=== PATIENT | female | born 1975 | race Caucasian/White ===

== ENCOUNTER 2018-10-27 13:16 | Inpatient (IN) ==
--- NOTE | 2018-10-27 13:48 | Emergency Department Note ---
Disposition Clinical Impression: Dysfunctional uterine bleeding Disposition: Still a Patient Referrals: David Gomez MD [Primary Care Provider] - General Adult HPI - General Chief complaint: ED Vaginal Bleeding Stated complaint: vaginal bleeding Time Seen by Provider: 10/27/18 13:26 Source: patient, family Mode of arrival: ambulatory Limitations: no limitations Nursing Notes Reviewed: Yes Vital Signs Reviewed: Yes - History of Present Illness HPI Narrative: Attestation note: Patient was seen with the emergency medicine resident/nurse practitioner/physician ex assistant/program director/transitional resident/medical student: Dr. Trino Prabhakar I have personally performed a face to face evaluation on this patient. I have reviewed and agree with history and physical examination patient management and disposition. Briefly the salient points of the case are as follows: 42-year-old female seen earlier in the week for dysfunctional uterine bleeding received a transfusion admitted offered a hysterectomy versus iron pills she opted for the latter. Patient says that she has been feeling more lightheaded feeling pallor feeling more fatigued. Patient does appear pale. Patient will be getting screening labs urine . Disposition pending depending on the results of hematocrit. Pain Scale: 0 - Related Data Home Medications Medication Instructions Recorded Confirmed Albuterol Sulfate [Ventolin Hfa] 2 puff IH Q4H PRN 08/19/15 08/19/15 Lisinopril/Hydrochlorothiazide 1 each PO DAILY 08/19/15 08/19/15 [Zestoretic 10-12.5 mg Tablet] Multivitamin [Multi-Day Vitamins] 1 each PO DAILY 08/19/15 08/19/15 Previous Rx's Medication Instructions Recorded OxyCODONE/APAP 10/325 [Percocet 1 each PO Q6HR PRN #36 tablet 08/19/15 10/325 MG] Docusate [Colace] 100 mg PO BID PRN #60 capsule 10/23/18 Ferrous Sulfate 325 mg PO TID #90 tablet. 10/23/18 Megestrol Acetate [Megace] 40 mg PO DAILY #14 tablet 10/23/18 metroNIDAZOLE [Flagyl] 500 mg PO BID #20 tablet 10/23/18 Allergies Allergy/AdvReac Type Severity Reaction Status Date / Time No Known Allergies Allergy Verified 10/22/18 10:49 Past Medical History - Past Medical History Medical history: Reports: hypertension, other Surgical history: Reports: cholecystectomy Psychiatric history: Reports: no psych history - Social History Smoking Status: Former smoker Alcohol use: Reports: none Drug use: Reports: none Course Vital Signs Temperature 98.2 F 10/27/18 13:19 Pulse Rate 150 10/27/18 13:19 Respiratory Rate 20 10/27/18 13:19 Blood Pressure 121/83 10/27/18 13:19 O2 Sat by Pulse Oximetry 100 10/27/18 13:19 Temperature 98.2 F 10/27/18 13:19 Pulse Rate 150 10/27/18 13:19 Respiratory Rate 20 10/27/18 13:19 Blood Pressure 121/83 10/27/18 13:19 O2 Sat by Pulse Oximetry 100 10/27/18 13:19 Oxygen Delivery Oxygen Delivery Room Air
[2018-10-27 14:09] LABS: Basophils % 0.4 %; Eosinophils % 0.9 %; Nucleated Red Blood Cells 0.5 /100 WBC (0); Red Cell Distribution Width 18.1 % (11.5-14.5)
[2018-10-27 14:11] LABS: Basophils # 0.1 K/mcL (0.0-0.2); Eosinophils # 0.1 K/mcL (0.0-0.6); Hematocrit 18.8 % (35.3-44.9); Lymphocytes # 1.9 K/mcL (0.6-4.6); Lymphocytes % 14.9 %; Mean Corpuscular HGB Conc 31.9 g/dL (31.6-35.5); Mean Corpuscular Hemoglobin 33.5 pg (28.0-33.3); Mean Platelet Volume 10.6 fL (9.4-12.4); Monocytes # 0.8 K/mcL (0.0-1.3); Monocytes % 5.9 %; Neutrophils # 9.7 K/mcL (1.6-8.9); Platelet Count 349 K/mcL (140-400); Red Blood Count 1.79 M/mcL (3.82-4.97); Segmented Neutrophils % 75.9 %
[2018-10-27] MEDS ORDERED: 0.9 % Sodium Chloride 1,000 ML IVC ONE (14:16)
[2018-10-27] MEDS ORDERED: 0.9 % Sodium Chloride 1,000 ML ONE (14:18)
[2018-10-27 14:37] LABS: Anisocytosis 1+ (Not Present); Hypochromasia Present (Not Present); Platelet Estimate Normal (Normal)
[2018-10-27 14:54] LABS: Bilirubin,Urine Negative (Negative); Blood,Urine Large (Negative); Clarity,Urine Turbid (Clear); Color,Urine Red (Yellow); Glucose,Urine (UA) Normal (Normal); Ketones,Urine Negative (Negative); Leukocyte Esterase,Urine Small (Negative); Nitrite,Urine Negative (Negative); Protein,Urine >=300 mg/dL (Neg-Trace); Specific Gravity,Urine 1.012 (1.010-1.025); Urobilinogen,Urine Normal (Normal)
[2018-10-27 14:55] LABS: Bacteria,Urine None Seen per hpf (None-Few); Hyaline Casts,Urine None Seen per lpf (None-Few); RBC,Urine TNTC per hpf (0-3); Squamous Epithelial Cell,Urine Many per lpf (None-Few)
--- NOTE | 2018-10-27 15:31 | Emergency Department Note ---
Disposition Clinical Impression: Vaginal bleeding, Low hemoglobin Disposition: Admitted As Inpatient Condition: Fair Time of Disposition: 15:37 Female Urogenital HPI - General Chief complaint: ED Vaginal Bleeding Stated complaint: vaginal bleeding Time Seen by Provider: 10/27/18 13:26 Source: patient, family Mode of arrival: ambulatory Limitations: no limitations Nursing Notes Reviewed: Yes Vital Signs Reviewed: Yes - History of Present Illness HPI Narrative: 42 old female presents to the emergency department with vaginal bleeding. She was seen here on Sunday admitted to the hospital for the bleeding and received Megace and started on iron. Patient was stable at time did not receive transfusions. She did have a ultrasound that showed ovarian cyst that will be followed up via OB. She was was having an appointment tomorrow with Dr. Agustin. Said that she started feeling more weak and became more pale says the reason why she return. Otherwise patient having no other complaints of feeling lightheaded whenever she stands otherwise no other fevers or chills the bleeding has been similar since she was discharged to not increasing but not decreasing. She says there is multiple clots. She is going through about 3-4 pads per day. - Related Data Home Medications Medication Instructions Recorded Confirmed Albuterol Sulfate [Ventolin Hfa] 2 puff IH Q4H PRN 08/19/15 08/19/15 Lisinopril/Hydrochlorothiazide 1 each PO DAILY 08/19/15 08/19/15 [Zestoretic 10-12.5 mg Tablet] Multivitamin [Multi-Day Vitamins] 1 each PO DAILY 08/19/15 08/19/15 Previous Rx's Medication Instructions Recorded OxyCODONE/APAP 10/325 [Percocet 1 each PO Q6HR PRN #36 tablet 08/19/15 10/325 MG] Docusate [Colace] 100 mg PO BID PRN #60 capsule 10/23/18 Ferrous Sulfate 325 mg PO TID #90 tablet. 10/23/18 Megestrol Acetate [Megace] 40 mg PO DAILY #14 tablet 10/23/18 metroNIDAZOLE [Flagyl] 500 mg PO BID #20 tablet 10/23/18 Allergies Allergy/AdvReac Type Severity Reaction Status Date / Time No Known Allergies Allergy Verified 10/22/18 10:49 All systems ED: reviewed and negative except as stated. Review of Systems: As Per HPI Past Medical History - Past Medical History Attestation: Yes The following information was validated with the patient. Source: patient Medical history: Reports: hypertension, other Surgical history: Reports: cholecystectomy Psychiatric history: Reports: no psych history - Social History Smoking Status: Former smoker Smokeless Tobacco Status: No Alcohol use: Reports: none Drug use: Reports: none Physical Exam - General Limitations: no limitations General appearance: alert, lethargic - Head Head exam: atraumatic, normocephalic, normal inspection - Eye Eye exam: Present: normal appearance, PERRL, EOMI - ENT ENT exam: normal exam, normal oropharynx, mucous membranes moist - Neck Neck exam: Present: normal inspection, full ROM, trachea midline - Chest Chest inspection: Present: normal inspection, symmetric chest wall rise - Respiratory Respiratory exam: Present: normal lung sounds bilaterally - Cardiovascular Cardiovascular exam: Present: regular rate, normal rhythm, normal heart sounds - Abdominal Exam Abdominal exam: Present: soft, Non-Tender, normal bowel sounds. Absent: tenderness, distention, guarding, rebound, rigidity - Extremities Exam Extremities exam: Present: normal inspection, full ROM. Absent: tenderness, pedal edema - Back Exam Back exam: Present: normal inspection, full ROM. Absent: tenderness, CVA tenderness (R), CVA tenderness (L) - Neurological Exam Neurological exam: Present: alert, oriented X3 - Skin Skin exam: Present: warm, dry, intact, normal color Course Vital Signs Temperature 98.2 F 10/27/18 13:19 Pulse Rate 150 10/27/18 13:19 Respiratory Rate 20 10/27/18 13:19 Blood Pressure 121/83 10/27/18 13:19 O2 Sat by Pulse Oximetry 100 10/27/18 13:19 Temperature 98.2 F 10/27/18 13:52 Pulse Rate 121 10/27/18 13:56 Respiratory Rate 18 10/27/18 13:56 Blood Pressure 108/81 10/27/18 13:56 O2 Sat by Pulse Oximetry 99 10/27/18 13:56 Oxygen Delivery Oxygen Delivery Room Air Urogenital-Female - MDM Narrative Medical decision making narrative: Patient had hemoglobin of 6.0 she did have an episode where she did syncopal eyes were somewhat got her up to go urinate for a urinalysis sample she did not fall did not hit her head she was lowered to the ground. Did not move her to the bed she did have stable blood pressure that time 108/78. Did give her 1 L of IV fluids. Patient when she had the decrease in hemoglobin we ordered 2 units to be transfused. Patient's okay with this plan. I spoke with Dr. Voss she agrees with this plan and will admit the patient to their service. Patient is admitted in stable condition. - Medical Records Medical records reviewed: Yes I reviewed the patient's medical records. - Lab Data Lab results reviewed: Yes I reviewed the patient's lab results. Result diagrams: 10/27/18 13:47 Lab Results 10/27/18 10/27/18 10/27/18 Range/Units 13:47 14:42 14:42 WBC 12.8 H (4.3-11.1) K/mcL RBC 1.79 L (3.82-4.97) M/mcL Hgb 6.0 L* (11.5-15.4) g/dL Hct 18.8 L (35.3-44.9) % MCV 105.0 H (83.0-100.0) fL MCH 33.5 H (28.0-33.3) pg MCHC 31.9 (31.6-35.5) g/dL RDW 18.1 H (11.5-14.5) % Plt Count 349 D (140-400) K/mcL MPV 10.6 (9.4-12.4) fL Immature Gran % 2.0 (0-4) % Seg Neutrophils % 75.9 % Lymphocytes % 14.9 % Monocytes % 5.9 % Eosinophils % 0.9 % Basophils % 0.4 % Neutrophils # 9.7 H (1.6-8.9) K/mcL Lymphocytes # 1.9 (0.6-4.6) K/mcL Monocytes # 0.8 (0.0-1.3) K/mcL Eosinophils # 0.1 (0.0-0.6) K/mcL Basophils # 0.1 (0.0-0.2) K/mcL Nucleated RBCs/100 WBC 0.5 H (0) /100 WBC Platelet Estimate Normal (Normal) Hypochromasia Present A (Not Present) Anisocytosis 1+ A (Not Present) Urine Color Red A (Yellow) Urine Clarity Turbid A (Clear) Urine pH 7.0 (5.0-8.0) pH Units Ur Specific [place] 1.012 (1.010-1.025) Urine Protein >=300 H (Neg-Trace) mg/dL Urine Glucose (UA) Normal (Normal) mg/dL Urine Ketones Negative (Negative) mg/dL Urine Blood Large H (Negative) Urine Nitrite Negative (Negative) Urine Bilirubin Negative (Negative) Urine Urobilinogen Normal (Normal) mg/dL Ur Leukocyte Esterase Small H (Negative) Urine Microscopic RBC TNTC H (0-3) per hpf Urine Microscopic WBC 5-15 H (0-3) per hpf Ur Squamous Epith Cells Many H (None-Few) per lpf Urine Bacteria None Seen (None-Few) per hpf Hyaline Casts None Seen (None-Few) per lpf Ur Culture Indicated? YES A (NO) Urine Test Negative (Negative) - EKG Data EKG attestation: Yes I reviewed and interpreted this EKG. EKG results narrative: EKG done at 1419 review myself and attending shows sinus tachycardia rate of 118, OH 114, QRS 96, QTC 474. There is no acute ST changes no acute T-wave changes no other signs of ischemia. No signs of hypertrophy, heart strain, heart block. No WPW/Brugada/HOCM. EKG unchanged when compared with old one done 10/22/18
[2018-10-27] MEDS ORDERED: 0.9 % Sodium Chloride 250 ML ONE (16:33)
[2018-10-27] MEDS ORDERED: 0.9 % Sodium Chloride 500 ML ONE (19:25)
--- NOTE | 2018-10-27 20:41 | OB/GYN History & Physical ---
Date of Encounter: 10/27/18 Time of Encounter: 20:00 Assessment and Plan (1) Dysfunctional uterine bleeding Current visit: Yes Status: Acute Increase Megace to BID and add Lysteda (only available IV from pharmacy, so IV given) (2) Anemia Current visit: Yes Status: Acute Patient has had menorrhagia for 14 days. Unsure if she also has a chronic component to the anemia as historical labs are not available. She is receiving 2 untis of PRBCs. A 4 hour post transfusion Hgb will be drawn to reassess. Her bleeding is slowing down and additional meds are ordered to facilitate the bleeding slowing down even further. Ultrasound report reviewed from last week did not show a thickened endometrial stripe so I do not feel a curettage is needed at this time. Qualifiers: Anemia type: other cause Other causes of anemia: acute posthemorrhagic Qualified Code(s): D62 - Acute posthemorrhagic anemia (3) Tachycardia Current visit: Yes Status: Acute Likely secondary to the anemia History of Present Illness Chief complaint: continued vaginal bleedin (day 15) with dizziness HPI: Ms. Katz is a 42 year old female with FDLMP 15 days ago presents to the ER today stating her bleeding this morning was heavy with large clots. She is now using her 4th pad for the day at 8 pm. She states she was getting dizzy so presented to the ER. Upon arrival to the ER she was up to the bathroom and bent down and became very dizzy. She went to leave the bathroom and called for help as she felt her eyes rolling into her head. She states she came to in a tech's arms and never fell to the ground. She has since received one unit of blood and IV fluids and has been up to the bathroom without dizziness or lightheadedness. She was admitted 6 days ago for the same reasons and was placed on QD megace and TID iron. She states the bleeding has slowed from that time, but has yet to stop. Prior to the admission she had been placed on Sprintec by her PCP. Past Med Surg Social Fam HX - Past Medical History Source: patient Medical history: hypertension, other Additional medical history: pre-diabetic, treated with fish oil bid Psychiatric history: no psych history - Past Surgical History Surgical History: cholecystectomy, herniorrhaphy (umbillical) Additional surgical history: tubal ligation - Social History Smoking Status: Former smoker Smokeless Tobacco Status: No Alcohol use: none Drug use: none Medications and Allergies Albuterol Sulfate [Ventolin Hfa] 2 puff IH Q4H PRN 08/19/15 [History] OxyCODONE/APAP 10/325 [Percocet 10/325 MG] 1 each PO Q6HR PRN #36 tablet 08/19/15 [Rx] Docusate [Colace] 100 mg PO BID PRN #60 capsule 10/23/18 [Rx] Ferrous Sulfate 325 mg PO TID #90 tablet. 10/23/18 [Rx] Megestrol Acetate [Megace] 40 mg PO DAILY #14 tablet 10/23/18 [Rx] metroNIDAZOLE [Flagyl] 500 mg PO BID #20 tablet 10/23/18 [Rx] Aspirin 81 mg PO DAILY 10/27/18 [History] Losartan/Hydrochlorothiazide [Losartan-Hctz 50-12.5 mg Tab] 1 each PO 10/27/18 [History] [place]-3/Dha/Epa/Fish Oil [Fish Oil 1,000 mg Softgel] 1,000 mg PO BID 10/27/18 [History] Allergy/AdvReac Type Severity Reaction Status Date / Time No Known Allergies Allergy Verified 10/22/18 10:49 Review of System OB - Constitutional Constitutional ROS IM: fatigue, no chills, no fever(s), no headache(s) - Cardiovascular Cardiovascular: no chest pain, no dyspnea - Respiratory Respiratory: no dyspnea, no dyspnea on exertion - Gastrointestinal Gastrointestinal: no nausea, no vomiting - Menstruation Menstruation: currently menstrual, menses 8 or > days, menses variable, period heavy, no amenorrhea, no amenorrhea on BC Exam - Vital Signs Vital signs: Initial Vital Signs Temp Pulse Resp BP Pulse Ox 98.2 F 150 20 121/83 100 10/27/18 13:19 10/27/18 13:19 10/27/18 13:19 10/27/18 13:10/27/18 13:19 - Constitutional Constitutional: well developed, well nourished, no acute distress, average body habitus - HEENT HEENT: EOMI - Lungs Respiratory exam: CTAB - Cardiovascular Cardiovascular exam: tachycardia (regular rhythm) - Abdomen Abdomen: Present: bowel sounds normal, non tender. Absent: guarding noted Results Result Diagrams: 10/27/18 13:47 Abnormal lab results WBC 12.8 K/mcL (4.3-11.1) H 10/27/18 13:47 RBC 1.79 M/mcL (3.82-4.97) L 10/27/18 13:47 Hgb 6.0 g/dL (11.5-15.4) L* 10/27/18 13:47 Hct 18.8 % (35.3-44.9) L 10/27/18 13:47 MCV 105.0 fL (83.0-100.0) H 10/27/18 13:47 MCH 33.5 pg (28.0-33.3) H 10/27/18 13:47 RDW 18.1 % (11.5-14.5) H 10/27/18 13:47 9.7 K/mcL (1.6-8.9) H 10/27/18 13:47 Nucleated RBCs/100 WBC 0.5 /100 WBC (0) H 10/27/18 13:47 Present (Not Present) A 10/27/18 13:47 1+ (Not Present) A 10/27/18 13:47 Red (Yellow) A 10/27/18 14:42 Turbid (Clear) A 10/27/18 14:42 >=300 mg/dL (Neg-Trace) H 10/27/18 14:42 Large (Negative) H 10/27/18 14:42 Ur Leukocyte Esterase Small (Negative) H 10/27/18 14:42 TNTC per hpf (0-3) H 10/27/18 14:42 5-15 per hpf (0-3) H 10/27/18 14:42 Ur Squamous Epith Cells Many per lpf (None-Few) H 10/27/18 14:42 Ur Culture Indicated? YES (NO) A 10/27/18 14:42 Crossmatch See Detail 10/27/18 13:47 All other labs normal. CT scan - pelvis: report reviewed US - abdomen: report reviewed
[2018-10-27] MEDS: metroNIDAZOLE 500 MG TABLET PO SCH (21:45)
[2018-10-27] MEDS: Ringers Solution, Lactated 1,000 ML IVC SCH (23:33)
[2018-10-28 03:17] LABS: Hematocrit 19.9 % (35.3-44.9); Hemoglobin 6.5 g/dL (11.5-15.4); Mean Corpuscular HGB Conc 32.7 g/dL (31.6-35.5); Mean Corpuscular Hemoglobin 31.1 pg (28.0-33.3); Mean Platelet Volume 10.3 fL (9.4-12.4); Platelet Count 266 K/mcL (140-400); Red Blood Count 2.09 M/mcL (3.82-4.97); Red Cell Distribution Width 20.8 % (11.5-14.5)
[2018-10-28 03:18] LABS: Mean Corpuscular Volume 95.2 fL (83.0-100.0)
[2018-10-28] MEDS ORDERED: 0.9 % Sodium Chloride 500 ML ONE (04:49)
--- NOTE | 2018-10-28 07:38 | OB/GYN Progress Note ---
Date of Encounter: 10/28/18 Time of Encounter: 07:34 - Assessment and Plan (1) Dysfunctional uterine bleeding Current Visit: Yes Status: Acute Pt readmitted for heavy vaginal bleeding despite Megace. She was syncopal and tachycardic with hgb 6.5. She has now received 2 units of blood and had hgb 6.5, pt now receiving 2 more units of blood. In ER pt had normal sized uterus with 6 cm complex right adnexal mass. D/w pt options and will proceed with LAVH and RSO possible BSO. Pt aware of operative risks and alternative surgical and non surgical tx's discussed will proceed surgery. Consent obtained. (2) Low hemoglobin Current Visit: Yes Status: Acute (3) Adnexal mass Current Visit: No Status: Acute Subjective - Subjective Principal diagnosis: dub bleeding with resultant anemia Interval history: Pt readmitted with acute blood loss anemia resultant from heavy continued vaginal bleeding. Pt admitted with syncope and found to have hgb 6.0, she received 2 units of blood and hgb 6.5 despite Megace and Lysteda. She continues to have light bleeding. No pain or s/sx's of infection. Objective - Vital Signs Latest vital signs: Vital Signs Temp Pulse Resp BP Pulse Ox 10/28/18 05:21 98.5 F 104 18 109/75 97 10/28/18 05:06 104 18 113/75 97 10/28/18 05:04 98 10/28/18 05:01 98.7 F 106 18 112/76 10/28/18 03:30 98.6 F 99 18 126/83 98 10/27/18 22:45 98.9 F 112 16 118/80 98 10/27/18 20:38 98.5 F 108 18 111/77 10/27/18 20:23 99.1 F 106 18 110/73 97 10/27/18 19:30 99.0 F 105 18 109/72 98 10/27/18 18:49 98.7 F 115 14 116/68 100 10/27/18 17:07 98.5 F 112 18 112/72 10/27/18 16:53 98.9 F 18 119/70 10/27/18 15:17 109 18 117/71 100 10/27/18 13:56 121 18 108/81 99 10/27/18 13:52 98.2 F 150 20 121/83 100 10/27/18 13:19 98.2 F 150 20 121/83 100 Intake and Output 10/27/18 10/27/18 10/28/18 15:59 23:59 07:59 Intake Total 2250 / 2250 1350 / 1350 Output Total 500 / 500 1200 / 1200 Balance 1750 / 1750 150 / 150 Intake: IV Fluids 1110 / 1110 700 / 700 0.9 % Sodium Chloride 1,000 ML 1000 / 1000 @ 999 mls/hr IVC .Q1H1M ONE Rx# :[id number] Lactated Ringers 1,000 ML @ 125 700 / 700 mls/hr IVC .Q8H NABEEL Rx#: [id number] Cyklokapron 1,000 MG In 0.9 % 110 / 110 Sodium Chloride 100 ML @ 220 mls/hr IVPB ONCE ONE Rx#: [id number] Oral 440 / 440 650 / 650 Blood Product 700 / 700 0 / 0 Rbcs Leuko Poor As-1 Unit 350 / 350 [id number] Rbcs Leuko Poor As-1 Unit 350 / 350 [id number] Rbcs Leuko Poor As-1 Unit 0 / 0 [id number] Output: Urine 500 / 500 1200 / 1200 Other: # Voids 1 Weight 80.739 kg 78 kg 77.836 kg Patient Weight 10/28/18 23:59 Weight 77.836 kg - I&O's I&O's: Intake & Output 10/25/18 10/26/18 10/27/18 10/28/18 23:59 23:59 23:59 23:59 Intake Total 2250 / 2250 1350 / 1350 Output Total 500 / 500 1200 / 1200 Balance 1750 / 1750 150 / 150 Weight 78 kg 77.836 kg - Exam Lungs: bilateral: normal Chest: Normal S1, Normal S2 Extremities: Present: normal Abdomen: Present: soft - Labs Labs: Abnormal lab results WBC 13.0 K/mcL (4.3-11.1) H 10/28/18 03:08 RBC 2.09 M/mcL (3.82-4.97) L 10/28/18 03:08 Hgb 6.5 g/dL (11.5-15.4) L 10/28/18 03:08 Hct 19.9 % (35.3-44.9) L 10/28/18 03:08 MCV 105.0 fL (83.0-100.0) H 10/27/18 13:47 MCH 33.5 pg (28.0-33.3) H 10/27/18 13:47 RDW 20.8 % (11.5-14.5) H 10/28/18 03:08 9.7 K/mcL (1.6-8.9) H 10/27/18 13:47 Nucleated RBCs/100 WBC 0.5 /100 WBC (0) H 10/27/18 13:47 Present (Not Present) A 10/27/18 13:47 1+ (Not Present) A 10/27/18 13:47 Red (Yellow) A 10/27/18 14:42 Turbid (Clear) A 10/27/18 14:42 >=300 mg/dL (Neg-Trace) H 10/27/18 14:42 Large (Negative) H 10/27/18 14:42 Ur Leukocyte Esterase Small (Negative) H 10/27/18 14:42 TNTC per hpf (0-3) H 10/27/18 14:42 5-15 per hpf (0-3) H 10/27/18 14:42 Ur Squamous Epith Cells Many per lpf (None-Few) H 10/27/18 14:42 Ur Culture Indicated? YES (NO) A 10/27/18 14:42 Crossmatch See Detail 10/27/18 13:47 Consult Discharge Plan - Plan Referrals: David Gomez MD [Primary Care Provider] -
[2018-10-28] MEDS: metroNIDAZOLE 500 MG TABLET PO SCH ×2 (08:24→21:13)
[2018-10-28 15:57] LABS: Hematocrit 27.8 % (35.3-44.9)
[2018-10-28 16:03] LABS: Hemoglobin 9.1 g/dL (11.5-15.4)
--- NOTE | 2018-10-28 17:27 | Anesthesia Evaluation PreOp ---
Date of Encounter: 10/28/18 Time of Encounter: 17:15 - Past History Planned Operation: LAVH, Lap. Right Salpingoopherectomy Cardiac History: Other (anemia) Pulmonary History: Denies Any Significant HX SENIOR ECONOMIST History: Denies Any Significant HX Other Medical History: Diabetes Type II (Pre-diabetic), Other ( heavy vaginal bleeding She was syncopal and tachycardic with hgb 6.5. She has received 4 un its of blood and had hgb 9.1,) Anesthesia History: No Prior Anesthetic Complications, Past Anesthesia (Umbilical hernia, GB, Tubal) : No Test: Negative (10/27/18) Alcohol Use: none Drug use: none Medications and Allergies Albuterol Sulfate [Ventolin Hfa] 2 puff IH Q4H PRN 08/19/15 [History] OxyCODONE/APAP 10/325 [Percocet 10/325 MG] 1 each PO Q6HR PRN #36 tablet 08/19/15 [Rx] Docusate [Colace] 100 mg PO BID PRN #60 capsule 10/23/18 [Rx] Ferrous Sulfate 325 mg PO TID #90 tablet. 10/23/18 [Rx] Megestrol Acetate [Megace] 40 mg PO DAILY #14 tablet 10/23/18 [Rx] metroNIDAZOLE [Flagyl] 500 mg PO BID #20 tablet 10/23/18 [Rx] Aspirin 81 mg PO DAILY 10/27/18 [History] Losartan/Hydrochlorothiazide [Losartan-Hctz 50-12.5 mg Tab] 1 each PO 10/27/18 [History] [place]-3/Dha/Epa/Fish Oil [Fish Oil 1,000 mg Softgel] 1,000 mg PO BID 10/27/18 [History] Allergy/AdvReac Type Severity Reaction Status Date / Time No Known Allergies Allergy Verified 10/22/18 10:49 - Meds/Allergy Pre-op Review Medications Reviewed: Yes Allergies Reviewed: Yes Beta Blockers on Current Med List: No Anesthesia Results - Labs 10/28/18 15:44 Laboratory Tests 10/22/18 10/22/18 11:57 11:57 INR 1.0 Sodium 137 Potassium 3.6 Chloride 106 Carbon Dioxide 23 BUN 19 Creatinine 0.60 - Imaging EKG: report reviewed (Sinus tachycardia Borderline prolonged QT interval) Additional studies: Laboratory Tests 10/27/18 14:42 Urine Test Negative Anesthesia Exam Vital Signs/O2 Sat, Most Current Temp Pulse Resp BP Pulse Ox 98.5 F 99 14 125/84 98 10/28/18 10:46 10/28/18 10:46 10/28/18 10:46 10/28/18 10:46 10/28/18 07:30 NPO (# of Hours): > 8 hrs Pain Scale: 0 Pain Scale Used: Numeric (1 - 10) - HEENT Pupil (Motor): Pupils equal, EOMI Mallampati: III Teeth: Normal Oral Opening: Greater than 3 - SENIOR ECONOMIST LOC: Oriented SENIOR ECONOMIST Motor: Normal RUE, Normal LUE, Normal RLE, Normal LLE, Normal Face SENIOR ECONOMIST Sensory: Normal: RUE, LUE, RLE, LLE, Face - Cardiac Rhythm: Regular Murmur: None JVD: No Carotid Bruit: No - Pulmonary Breath Sounds: bilateral Clear Respiratory Effort: Symmetrical Anesthesia Assess/Plan ASA Score: 3 Level of consciousness: Cooperative Anesthetic Plan: General Autologous Blood: Yes Monitoring Plan: Standard Monitors Recovery Plan: PACU
[2018-10-29] MEDS: Ringers Solution, Lactated 1,000 ML IVC SCH (01:14)
[2018-10-29 05:57] LABS: Basophils # 0.1 K/mcL (0.0-0.2); Basophils % 0.6 %; Eosinophils # 0.3 K/mcL (0.0-0.6); Eosinophils % 3.3 %; Hematocrit 24.3 % (35.3-44.9); Hemoglobin 7.9 g/dL (11.5-15.4); Immature Granulocytes % 1.4 % (0-4); Lymphocytes # 1.9 K/mcL (0.6-4.6); Mean Corpuscular HGB Conc 32.5 g/dL (31.6-35.5); Mean Corpuscular Hemoglobin 30.6 pg (28.0-33.3); Mean Corpuscular Volume 94.2 fL (83.0-100.0); Monocytes # 0.7 K/mcL (0.0-1.3); Monocytes % 8.1 %; Neutrophils # 5.6 K/mcL (1.6-8.9); Nucleated Red Blood Cells 0.3 /100 WBC (0); Platelet Count 235 K/mcL (140-400); Red Blood Count 2.58 M/mcL (3.82-4.97); Red Cell Distribution Width 19.9 % (11.5-14.5); Segmented Neutrophils % 64.6 %
[2018-10-29] MEDS ORDERED: 0.9 % Sodium Chloride 500 ML ONE ×2 (07:54→18:33)
--- NOTE | 2018-10-29 09:40 | Electrocardiograph Report ---
[address] [address] Test Date: 2018-10-27 Pat Name: Kiley Katz Department: [id number] Room: [facility] Gender: F Computer Programming Supervisor: : 1975 Requested By: Oswaldo Malone Order Number: [id number] Reading MD: Liborio Lomas Measurements Intervals [place] Rate: 118 P: 63 TN: 114 QRS: 35 QRSD: 96 T: 37 QT: 338 QTc: 474 Interpretive Statements Sinus tachycardia Electronically Signed On 10-29-2018 9:38:52 EDT by Liborio Lomas
[2018-10-29] MEDS ORDERED: CeFAZolin Premix DUPLEX 2,000 MG/50 ML BAG IVPB ONE (13:08)
--- NOTE | 2018-10-29 13:15 | History & Physical Report ---
Date of Encounter: 10/29/18 Time of Encounter: 13:14 24 Hour HP Update - Instructions Instructions: If the History and Physical is less than 30 days old and was completed prior to A.M. admission and or procedure and has NOT been updated on calendar day of procedure please complete this update prior to performing procedure. - Update Patient reports changes in Medical Condition: No Changes in examination, assessment, or condition: No Changes in Medication: No Preop tests/diagnostics Reviewed: Yes Surgery Remains Indicated: Yes Consent for Planned Operative Procedure(s) Verified: Yes - Pre-Operative Checklist Preoperative Checklist Indicated: Yes Prophylactic Antibiotic Ordered: Yes Home Medications Include Beta Anthony: No Beta Anthony Taken Today (Day of Surgery): No Beta Anthony Taken Yesterday (Day Prior to Surgery): No Is VTE Prophylaxis Indicated?: Yes
[2018-10-29] MEDS ORDERED: *HR* OxyCODONE Immed Rel 5 MG TABLET PO PRN (13:24)
[2018-10-29] MEDS ORDERED: *HR* Promethazine 25 MG/ML VIAL IVP PRN (13:24)
[2018-10-29] MEDS ORDERED: Lidocaine -MPF 2% 2 ML VIAL ONE (13:40)
[2018-10-29] MEDS ORDERED: Ondansetron 4 MG/2 ML VIAL ONE (13:40)
[2018-10-29] MEDS ORDERED: *HR* FentaNYL (PF) 100 MCG/2 ML VIAL ONE (13:40)
[2018-10-29] MEDS ORDERED: *HR* Midazolam HCl 2 MG/2 ML VIAL ONE (13:40)
[2018-10-29] MEDS ORDERED: *HR* Remifentanil 2 MG VIAL IVP ONE (13:40)
[2018-10-29] MEDS ORDERED: *HR* Propofol 200 MG/20 ML VIAL IVP ONE (13:40)
[2018-10-29] MEDS ORDERED: Dexamethasone 4 MG/ML VIAL ONE (13:40)
[2018-10-29] MEDS ORDERED: Lidocaine -MPF 4% 5 ML AMPUL ONE (13:40)
[2018-10-29] MEDS ORDERED: *HR* Rocuronium Bromide 50 MG/5 ML VIAL ONE (13:40)
[2018-10-29] MEDS ORDERED: Lidocaine/EPI 1:100k 1% 20 ML VIAL ONE (13:42)
[2018-10-29] MEDS ORDERED: MetroNIDAZOLE 500 MG/100 ML 500 MG/100 ML BAG IVPB ONE (14:36)
[2018-10-29] MEDS ORDERED: Tranexamic Acid 1,000 MG/10 ML VIAL ONE (14:44)
[2018-10-29 14:52] LABS: VBG Base Excess -2 mEq/L; VBG Chloride 108 mEq/L (98-107); VBG Glucose 107 mg/dl (65-95); VBG HCO3 21 mEq/L (21-27); VBG Ionized Calcium 1.11 mmol/L (1.15-1.35); VBG Oxygen Saturation 100 %; VBG PCO2 31 mmHg (41-51); VBG PH 7.44 pH Units (7.32-7.42); VBG PO2 327 mmHg (25-50); VBG Total CO2 22 mEq/L
[2018-10-29] MEDS ORDERED: *HR* PHENYLEPHRINE 1,000 MCG/10 ML SYRINGE IVP ONE (15:27)
[2018-10-29 15:28] LABS: Hematocrit 24.7 % (35.3-44.9); Hemoglobin 8.2 g/dL (11.5-15.4)
[2018-10-29] MEDS ORDERED: SUGAMMADEX SODIUM 500 MG/5 ML VIAL IV ONE (15:30)
[2018-10-29 15:44] LABS: Prothrombin Time 11.3 Seconds (9.4-12.1)
[2018-10-29 15:45] LABS: Activated Partial Thrombo Time 23.2 Seconds (26.0-36.0)
[2018-10-29] MEDS ORDERED: *HR* HYDROMORPHONE 2 MG/ML VIAL ONE (15:45)
--- NOTE | 2018-10-29 15:58 | OB/GYN Procedure Note ---
Hysterectomy - Diagnosis Date of procedure: 10/29/18 Hysterectomy pre-op: abnormal uterine bleeding, other (Complex right ovarian cyst) Post-op diagnosis: same - Procedure Hysterectomy procedure: lap assisted vaginal hysterectomy, right salpingo oophorectomy, bilateral salpingectomy Surgeon: Osmar Agustin Was there an insurance administrative assistant present: Yes Vehicle And Equipment Cleaner: Robyn Holland Anesthesia Type: General Estimated blood loss (cc): 600 Fluids: crystalloid Specimens: right ovary, uterus, cervix, left fallopian tube Findings: Enlarged bulky uterus, cystic right ovary, normal fallopian tubes bilaterally, normal left ovary Disposition: PACU Narrative: Patient's a 42-year-old female with a little over 2 minutes history of irregular bleeding has lessened 17 days been bleeding much more heavily. She was admitted to the hospital last week after ultrasound showed normal size uterus with a 5 cm right ovarian cyst and she was having heavy bleeding with resultant anemia. She was started on Megace as well as Flagyl for bacterial vaginosis and a gestational support and the bleeding did improve she was discharged home. She refused transfusion at that time. She was readmitted 2 days prior to surgery syncope in hemoglobin of 6.0. She was transfused in getting 3 units of blood was started on the strata but continued having heavy bleeding after discussed with patient options decision was made to proceed with laparoscopic-assisted vaginal hysterectomy right salpingectomy oophrectomy possible bilateral salpingectomy oophrectomy. She was counseled operative risks and signed approp riate consent. Description procedure: Patient was taken operating room where general anesthesia was administered. She was prepped draped in usual sterile fashion. Bladder was drained of clear urine with Payne catheter. Cervix is visualized and grasped with single-tooth tenaculum. [place] uterine manipulators placed in the cervix. Scalpel was used to make 5 mm incision left upper quadrant. 5 mm trochars introduced without difficulty. Patient was placed in Trendelenburg position. Second 5 mm trochars placed in left upper quadrant and third 5 mm trocar was placed in the right upper quadrant. Uterus was enlarged and boggy both fallopian tubes were normal left ovary was normal right ovary was enlarged and multicystic. Left fallopian tube was pulled towards the midline ligatures taken crossed mesosalpinx and this was transected. LigaSure was then taken across the utero-ovarian ligament was cauterized and transected. Round ligament on left side was cauterized and transected with LigaSure. Broad ligament was then skeletonized and uterine vessels were cauterized and transected with LigaSure. Bladder flap was developed and lower uterine segment. infundibulopelvic ligament on the right side was cauterized with LigaSure and then transected. I then cauterized and transected the round ligament on the right side with LigaSure. Broad ligament was skeletonized and the vessels were cauterized. Further took the bladder flap down. This point we had only about 5 mL bleeding hemostasis was excellent. Then turned my attention to vaginal portion procedure. [place] uterine manipulators removed and a second single-tooth tenaculum was placed in the cervix. Injected cervix with 1% lidocaine with epinephrine in a circumferential incision was made. Newly was noted she was using quite excessively and the blood was quite thin like water. Entered anteriorly and posteriorly into the cul-de-sacs. She did not have significant using. Curved Drea clamps taken across uterosacral ligaments on each side these were transected and ligated with 0 Vicryl suture. Curved Drea clamps taken across the cardinal ligaments on each side these 2 were transected and ligated with 0 Vicryl suture. This point the uterus cervix fallopian tubes right ovary removed without difficulty. Posterior vaginal cuff was oozing a small amount we did run the posterior vaginal cuff with 0 Vicryl in running lock stitch. We did saw 1 unit of FFP and we did inserted 2 more units of packed of blood cells were available however interrupted hemoglobin came back 8.1. Once the posterior vaginal cuff was run with 0 Vicryl in running lock stitch anterior posterior vaginal cuff reapproximated with running lock stitch of 0 Vicryl. Skin laparoscopy was performed there was excellent hemostasis. Anu was applied to the vaginal cuff and the pedicles with excellent hemostasis. Again again inspected the vagina Anu was placed in the vagina. This point all sponge and instruments counts are correct there was excellent hemostasis patient was awakened taken recovery in good condition.
[2018-10-29] MEDS ORDERED: Ringers Solution, Lactated 1,000 ML IVC SCH (16:40)
[2018-10-29] MEDS ORDERED: Naloxone 0.4 MG/ML INJ IVP PRN (16:40)
[2018-10-29] MEDS ORDERED: Ondansetron 4 MG/2 ML VIAL IVP PRN (16:40)
--- NOTE | 2018-10-29 16:40 | Anesthesia Evaluation Post Op ---
Date of Encounter: 10/29/18 Time of Encounter: 16:40 - Vital Signs Vital Signs: Vital Signs/O2 Sat/Glucose, Most Current Temp Pulse Resp BP Pulse Ox 10/29/18 16:26 99.2 F 98 20 148/97 97 10/29/18 16:16 99 20 147/101 96 10/29/18 16:06 102 18 154/101 100 10/29/18 15:56 99.1 F 109 20 157/104 100 - Lungs Lungs: Clear Ascult./Percussion - Airway Airway: Non-obstructed - Cardiovascular Regular Rate - Mental Status Mental Status: Alert & Oriented, Answers Appropriately - Pain Pain Scale: 0 - Nausea Vomiting Nausea Vomiting: Not Present - Hydration Hydration: Ice chips - Discharge PostOp Status: Transfer Patient to floor
--- NOTE | 2018-10-29 17:53 | Event Note ---
Date of Encounter: 10/29/18 Time of Encounter: 17:51 CTSP upon her arrival to floor from surgery due to pallor and cramping. Her pulse is 94 and BP 134/97. Her urine output is great and clear and her abdomen is soft. No evidence of active bleeding at this time. Will check h/h and go ahead and give 2 units of FFP. Will watch closely.
[2018-10-29 18:14] LABS: Hematocrit 27.3 % (35.3-44.9); Hemoglobin 8.9 g/dL (11.5-15.4)
[2018-10-29] MEDS: Ketorolac 30 MG/ML VIAL IVP PRN (19:49)
[2018-10-29] MEDS: *HR* HYDROcodone/Acet 5/325 mg TABLET PO PRN (21:28)
[2018-10-30 00:41] LABS: Hematocrit 23.8 % (35.3-44.9); Hemoglobin 7.7 g/dL (11.5-15.4); Mean Corpuscular HGB Conc 32.4 g/dL (31.6-35.5); Mean Corpuscular Hemoglobin 30.6 pg (28.0-33.3); Mean Corpuscular Volume 94.4 fL (83.0-100.0); Platelet Count 244 K/mcL (140-400); Red Blood Count 2.52 M/mcL (3.82-4.97); Red Cell Distribution Width 19.1 % (11.5-14.5)
[2018-10-30 00:45] LABS: Prothrombin Time 11.5 Seconds (9.4-12.1)
[2018-10-30 00:47] LABS: Activated Partial Thrombo Time 22.2 Seconds (26.0-36.0)
[2018-10-30] MEDS: Ketorolac 30 MG/ML VIAL IVP PRN (02:54)
[2018-10-30 04:52] LABS: Basophils % 0.1 %; Eosinophils % 0.3 %; Hematocrit 23.3 % (35.3-44.9); Hemoglobin 7.6 g/dL (11.5-15.4); Immature Granulocytes % 0.7 % (0-4); Lymphocytes # 1.3 K/mcL (0.6-4.6); Lymphocytes % 9.2 %; Mean Corpuscular HGB Conc 32.6 g/dL (31.6-35.5); Mean Corpuscular Hemoglobin 30.5 pg (28.0-33.3); Mean Corpuscular Volume 93.6 fL (83.0-100.0); Mean Platelet Volume 10.2 fL (9.4-12.4); Monocytes # 0.9 K/mcL (0.0-1.3); Neutrophils # 11.9 K/mcL (1.6-8.9); Platelet Count 229 K/mcL (140-400); Red Blood Count 2.49 M/mcL (3.82-4.97); Red Cell Distribution Width 19.2 % (11.5-14.5); Segmented Neutrophils % 83.7 %
--- NOTE | 2018-10-30 07:37 | Discharge Summary ---
Outpatient Proc Discharge Plan - Plan Prescriptions: Ibuprofen [Motrin] 600 mg PO Q6HR PRN #40 tab PRN Reason: post op pain HYDROcodone/Acet 5/325 mg [[place] 5-325 mg] 1 tab PO Q4H PRN 7 Days #30 tab PRN Reason: postop pain Home Medications: Albuterol Sulfate [Ventolin Hfa] 2 puff IH Q4H PRN 08/19/15 [History] OxyCODONE/APAP 10/325 [Percocet 10/325 MG] 1 each PO Q6HR PRN #36 tablet 08/19/15 [Rx] Docusate [Colace] 100 mg PO BID PRN #60 capsule 10/23/18 [Rx] Ferrous Sulfate 325 mg PO TID #90 tablet. 10/23/18 [Rx] metroNIDAZOLE [Flagyl] 500 mg PO BID #20 tablet 10/23/18 [Rx] Aspirin 81 mg PO DAILY 10/27/18 [History] Losartan/Hydrochlorothiazide [Losartan-Hctz 50-12.5 mg Tab] 1 each PO 10/27/18 [History] [place]-3/Dha/Epa/Fish Oil [Fish Oil 1,000 mg Softgel] 1,000 mg PO BID 10/27/18 [History] HYDROcodone/Acet 5/325 mg [[place] 5-325 mg] 1 tab PO Q4H PRN 7 Days #30 tab 10/30/18 [Rx] Ibuprofen [Motrin] 600 mg PO Q6HR PRN #40 tab 10/30/18 [Rx]
[2018-10-30 07:51] VITALS: BP 120/80
[2018-10-30] MEDS: *HR* HYDROcodone/Acet 5/325 mg TABLET PO PRN (11:05)
[2018-10-30 14:02] LABS: Hematocrit 25.9 % (35.3-44.9); Hemoglobin 8.4 g/dL (11.5-15.4)
== END 2018-10-30 15:12 | disposition home or self-care (01) | DRG 742 ==
LOC: EMEROOARM 13:16 → 1NENUOBS 13:16
PROVIDERS: ADMIT Obstetrics & Gynecology; ATTEND Obstetrics & Gynecology
PROC: GYNLAVH (ICD-10-PCS; 2018-10-29 15:45)